=== PATIENT | male | born 1995 | race Two or more races ===

== ENCOUNTER 2017-08-22 21:26 | Emergency (ER) | payer OTHER ==
[~2017-08-22] VITALS: Ht 180.3 cm; Wt 99.8 kg
[~2017-08-22 21:26] MED LIST: CYCLOBENZAPRINE10 MG ORAL; IBUPROFEN600 MG ORAL
[2017-08-22] MEDS ORDERED: NKM (21:49)
[2017-08-22 21:50] VITALS: BP 125/80
[2017-08-22] MEDS ORDERED: AUGMENTIN 875-1 EAC1 ORAL (22:10)
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
[2017-08-22] MEDS ORDERED: Bacitracin Oint UD TOPIC ONE (22:15)
[2017-08-22 22:25] VITALS: BP 125/80
== END 2017-08-22 22:25 | disposition home or self-care (01) ==
LOC: EMR 22:02
DX: S70.311A Abrasion, right thigh, initial encounter (principal); S70.11XA Contusion of right thigh, initial encounter; W54.0XXA Bitten by dog, initial encounter; Y92.89 Other specified places as the place of occurrence of the external cause; Y99.0 Civilian activity done for income or pay
CPT/HCPCS: 99283

== ENCOUNTER 2018-08-30 20:45 | Emergency (ER) | payer OTHER ==
[~2018-08-30] VITALS: Ht 180.3 cm; Wt 113.4 kg
[~2018-08-30 20:45] MED LIST changes: +AUGMENTIN 875-1 EAC1 ORAL; +NKM
[2018-08-30 21:23] VITALS: BP 131/81
[2018-08-30 22:00] VITALS: BP 131/81
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
[2018-08-30] MEDS ORDERED: IBUPROFEN600 MG ORAL (22:08)
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
== END 2018-08-30 22:00 | disposition home or self-care (01) ==
LOC: EMR 21:44
DX: S39.012A Strain of muscle, fascia and tendon of lower back, initial encounter (principal); V63.5XXA Driver of heavy transport vehicle injured in collision with car, pick-up truck or van in traffic accident, initial encounter; Y92.488 Other paved roadways as the place of occurrence of the external cause
CPT/HCPCS: 72110; 99283